=== PATIENT | female | born 1965 | race Caucasian/White ===

== ENCOUNTER 2019-11-18 08:53 | Outpatient (CLI) | payer OTHER, SELFPAY ==
--- NOTE | ~2019-11-18 | MM_ITS ---
EXAMINATION: MM screening [facility] BI w chandler HISTORY: Screening mammogram TECHNIQUE: Craniocaudal and mediolateral oblique 3-D tomosynthesis images were obtained and synthetic 2-D images were generated. CAD analysis was submitted and interpreted. COMPARISON: 11/30/2017, 11/24/2016, 11/12/2015 bilateral digital screening mammogram examinations BREAST PARENCHYMAL COMPOSITION: The breasts are heterogeneously dense, which may obscure small masses . FINDINGS: There is no evidence of suspicious mass, calcification, or architectural distortion to sugg est malignancy in either breast. There has been no suspicious interval change. IMPRESSION: 1. No mammographic evidence of malignancy. 2. Recommend routine screening mammography in one year. BI-RADS Category 1: Negative Reviewed, dictated and finalized at location A.
--- NOTE | ~2019-11-18 | DEXA_ITS ---
BMD(1) Young-Adult(2) Age-Matched(3) Region (g/cm2) T-score Z-score WHO Classification L1 1.172 0.3 1.7 Normal L2 1.146 -0.5 0.9 Normal L3 1.228 0.1 1.6 Normal L4 1.104 -0.9 0.6 Normal L1-L4 1.159 -0.3 1.2 Normal Trend: L1-L4 Change vs Change vs Measured Age BMD(1) Baseline Previous Date (years) (g/cm2) (%) (%) 11/18/2019 [age] 1.159 baseline - 1 - Statistically 68% of repeat scans fall within 1SD (+- 0.010 g/cm2 for AP Spine L1-L4) 2 - [place] (Combined NHANES (ages 20-30) / Smart Education (ages 20-40)) AP Spine Reference Population (v112) 3 - Matched for Age, Weight (females 25-100 kg), Ethnic 11 - World Health Organization - Definition of Osteoporosis and Osteopenia for Women: Normal = T-score at or above -1.0 SD; Osteopenia = T-score between -1.0 and -2.5 SD; Osteoporosis = T-score at or below -2.5 SD; (WHO definitions only apply when a young healthy Women reference database is used to determine T-scores.) Printed: 11/18/2019 10:42:20 AM (13.60)76:3.00:50.00:12.0 0.00:8.58 0.60x1.05 18.6:%Fat=33.0% 0.00:0.00 0.00:0.00 Filename: [id number] Scan Mode: Standard;OneScan 37.0 [employer] [id number] BMD(1) Young-Adult(2) Age-Matched(3) Region (g/cm2) T-score Z-score WHO Classification Neck Left 0.787 -1.8 -0.4 Osteopenia Right 0.754 -2.0 -0.6 Osteopenia Mean 0.770 -1.9 -0.5 Osteopenia Difference 0.032 0.2 0.2 - Total Left 0.850 -1.3 -0.1 Osteopenia Hip [place] Length Comparison (mm) (Right = 90.4 mm) (Mean = 100.5 mm) (Left = 92.8 mm) Trend: Total Mean Change vs Change vs Measured Age BMD(1) Baseline Previous Date (years) (g/cm2) (%) (%) 1 - Statistically 68% of repeat scans fall within 1SD (+- 0.010 g/cm2 for DualFemur Total) 2 - [place] (Combined NHANES (ages 20-30) / Smart Education (ages 20-40)) Femur Reference Population (v112) 3 - Matched for Age, Weight (females 25-100 kg), Ethnic 11 - World Health Organization - Definition of Osteoporosis and Osteopenia for Women: Normal = T-score at or above -1.0 SD; Osteopenia = T-score between -1.0 and -2.5 SD; Osteoporosis = T-score at or below -2.5 SD; (WHO definitions only apply when a young healthy Women reference database is used to determine T-scores.) Printed: 11/18/2019 10:42:20 AM (13.60); Filename: [id number]; Right Femur; 15.2:%Fat=21.6%; Neck Angle (deg)= 60; Scan Mode: Thin 9.0 uGy; Left Femur; 14.8:%Fat=23.4%; Neck Angle (deg)= 72; Verify there is sufficient tissue above and below femoral neck.; Scan Mode: Thin 9.0 uGy Jild[employer] [id number] Dear Levon Guadalupe, Your patient Teri Andujar completed a BMD test on 11/18/2019 using the Jildy DXA System (analysis version: 13.60) manufactured by [employer]. The following summarizes the results of our evaluation. PATIENT BIOGRAPHICAL: Name: Teri Andujar Date: 1965 Height: 60.0 in. Gender: Female Exam Date: 11/18/2019 Weight: 104.0 lbs. Indications: Caffeinated drinks, , Hysterectomy Fractures: Treatments: Multivitamin, Seizure Meds, Vitamin D ASSESSMENT: The BMD measured at Femur Neck Right is 0.754 g/cm2 with a T-score of -2.0. This patient is considered
== END 2019-11-18 08:54 | disposition home or self-care (01) ==
LOC: CHSIMG 08:54
PROVIDERS: PCP Internal Medicine; Visit Provider Internal Medicine
DX: Z12.31 Encounter for screening mammogram for malignant neoplasm of breast (principal); M81.0 Age-related osteoporosis without current pathological fracture
CPT/HCPCS: 77063; 77067; 77080

== ENCOUNTER 2020-07-10 09:42 | Outpatient (CLI) | payer OTHER, SELFPAY ==
--- NOTE | ~2020-07-10 | XR_ITS ---
EXAMINATION: XR chest 2V DATE: 07/10/2020 10:22 INDICATION: Preoperative evaluation for carpal tunnel surgery. Former smoker with seasonal asthma. Os teoporosis. TECHNIQUE: PA and lateral views of the chest were obtained. COMPARISON: Chest radiograph dated 06/01/17 FINDINGS: The lungs remain clear with no focal airspace opacities, pulmonary edema, pleural effusion or pneumot horax. The cardiomediastinal silhouette is normal. Visualized bones and soft tissues are unremarkable . IMPRESSION: 1. Normal chest radiograph. Reviewed, dictated and finalized at location A. IMPRESSION: 1. Normal chest radiograph.
[2020-07-10 09:58] LABS: Add Urine Microscopic? NO; Appearance Urine Clear (Clear); Basophils Absolute Auto 0.06 K/mm3 (0.00-0.10); Basophils Percent Auto 0.8 % (0.0-1.0); Bilirubin Urine Negative (Negative); Blood Urine Negative (Negative); Color Urine Yellow (Yellow); Eosinophils Absolute Auto 0.17 K/mm3 (0.02-0.50); Eosinophils Percent Auto 2.4 % (1.0-6.0); Glucose Urine UA Negative (Negative); Hemoglobin 15.1 g/dL (12.0-15.0); Immature Granulocyte Absolute 0.02 K/mm3 (0.00-0.00); Immature Granulocyte Percent A 0.3 % (0.0-0.0); Ketones Urine Negative (Negative); Leukocyte Esterase Ur Negative (Negative); Lymphocytes Absolute Auto 2.02 K/mm3 (1.10-4.50); Lymphocytes Percent Auto 28.5 % (18.0-42.0); Mean Corpuscular HGB Conc 33.6 g/dL (32.0-36.0); Mean Corpuscular Hemoglobin 30.1 pg (27.0-31.0); Mean Corpuscular Volume 89.6 fL (78.0-102.0); Mean Platelet Volume 9.1 fl (9.2-11.8); Monocytes Absolute Auto 0.47 K/mm3 (0.10-0.90); Monocytes Percent Auto 6.6 % (2.0-11.0); Neutrophils Absolute Auto 4.4 K/mm3 (1.7-7.2); Neutrophils Percent Auto 61.4 % (50.0-70.0); Nitrate Urine Negative (Negative); Platelet Count Result 340 K/mm3 (150-420); Protein Urine Negative (Negative); Red Blood Count 5.02 M/mm3 (4.20-5.40); Red Cell Distribution Width 11.9 % (11.6-14.4); Specific Grav Ur 1.015 (1.010-1.020); Urobilinogen Urine 0.2 mg/dL (0.2-1.0); White Blood Count 7.1 K/mm3 (4.8-10.8); pH Urine 5.5 (5.0-8.0)
[2020-07-10 10:41] LABS: Alanine Aminotransferase 47 U/L (14-59); Albumin Level 3.9 g/dL (3.4-5.0); Alkaline Phosphatase 79 U/L (46-116); Anion Gap 10 mmol/L (8-16); Aspartate Amino Transferase 22 U/L (15-37); Bilirubin,Total 0.4 mg/dL (0.00-1.00); Blood Urea Nitrogen 16 mg/dL (7-18); Calcium 9.5 mg/dL (8.5-10.1); Carbon Dioxide 27 mmol/L (21-32); Chloride 106 mmol/L (98-108); Estimated Glomerular Filt Rate > 60; Glucose 76 mg/dL (70-99); Osmolality Calculated 296 mOsm/kg (285-295); Sodium 143 mmol/L (136-145); Total Protein 7.2 g/dL (6.4-8.2)
== END 2020-07-10 09:43 | disposition home or self-care (01) ==
PROVIDERS: PCP Internal Medicine; Visit Provider Internal Medicine
DX: R73.01 Impaired fasting glucose (principal); D47.3 Essential (hemorrhagic) thrombocythemia; R74.01 Elevation of levels of liver transaminase levels
CPT/HCPCS: 36415; 71046; 80053; 81003; 85025

== ENCOUNTER 2020-08-14 07:57 | Outpatient (RCR) | payer OTHER, SELFPAY ==
--- NOTE | 2020-08-14 09:39 | OTOPEVAL ---
Thank you for referring Teri Andujar to [facility].? The patient is scheduled to be seen for therapy? ____x/week for ___ weeks. Please review, sign, date and return this plan of care TIA. I agree with and certify that the following plan of care is medically necessary. Referring Physician Date Admitting Provider: Attending Provider: RAFITA STREETER Referring Provider: FranciscaOT Outpatient Evaluation Start: 08/14/20 07:32 Freq: Status: Active Protocol: [place] 08[place]14/20 08:03 [facility] [place]Rec[place] 08/14/20 09:37 [facility] [place] [id number] Therapy Assessment Status Assessment Status Assessment Status Evaluation Evaluation Information Problem Diagnosis decreased ROM and strength Onset 08/10/20 Cause carpal tunnel Subjective Information Patient reports that she had Query Text:As Reported By Patient/ surgery for carpal tunnel on * and got her stitches out on Monday. Patient reports that her L hand/incision has been sore. Patient works in housekeeping at [employer] and is supposed to go back in ~ 2 weeks. Patient reports that that her left hand continues to be numb and she is unable to grasp anything. Quick DASH score: 77 .3% Prior Level of Function Activity Level (Last 3 Months) Occupation software engineering supervisor Hand Dominance Right Activity of Daily Living Ability Independent Indoor/Home Mobility Independent Community Mobility Independent Stairs Ability Independent Functional Cognition (Planning, Shopping Independent , Taking Medications) Cooking Yes Cleaning Yes Laundry Yes Shopping Yes Driving Yes Pain Assessment Timing of Pain Assessment Timing of Pain Assessment Assessment Pain Scale Pain Scale Used Numeric (1 - 10) Self Report Pain Assessment Left Wrist(s) Reported Pain Level 5 Lowest Pain Intensity 3 Greatest Pain Intensity 8 Pain Score Pain Score 5: Self Report Interventions Used Interventions Used By Clinicians Exercise,Mobilization,Manual Therapy Techniques Upper Extremity Range of Motion General Upper Extremity Range of Motion Reason Not Measured WNL/Left,WNL/Right Wrist Range of Motion Left Wrist Flexion - Active
--- NOTE | 2020-09-11 08:08 | OTOPEVAL ---
Thank you for referring Teri Andujar to [facility].? The patient is scheduled to be seen for therapy? ____x/week for ___ weeks. Please review, sign, date and return this plan of care TIA. I agree with and certify that the following plan of care is medically necessary. Referring Physician Date Admitting Provider: Attending Provider: RAFITA STREETER Referring Provider: FranciscaOT Outpatient Evaluation Start: 08/14/20 07:32 Freq: Status: Active Protocol: Document 09/11/20 07:08 [facility] [place] [place] (Rec: 09/11/20 08:08 [facility] [place] [place] [id number]) Therapy Assessment Status Assessment Status Assessment Status Re-evaluation Evaluation Information Problem Subjective Information Patient reports that she Query Text:As Reported By Patient/ continues to perform all home Family programming and has started using a massager on her scar. Patient returned back to work this past week. 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 Patient notes that she is getting much better with ease of performing all ADLs. Numbness in her L thumb , index and middle finger remains although she states she has had short periods of improvement. Pain Assessment Timing of Pain Assessment Timing of Pain Assessment Re-assessment Pain Scale Pain Scale Used Numeric (1 - 10) Self Report Pain Assessment Left Wrist(s) Reported Pain Level 6 Pain Description Throbbing Pain Score Pain Score 6: Self Report Interventions Used Interventions Used By Clinicians Exercise,Heat,Manual Therapy Techniques Hand Data Integration Developer/Pinch Strength Assessment Hand Right Data Integration Developer Strength (lbs) 43 Lateral Pinch Strength (lbs) 7 Tip Pinch Strength (lbs) 5 Left Data Integration Developer Strength (lbs) 16 Lateral Pinch Strength (lbs) 4 Tip Pinch Strength (lbs) 2 Sensation Assessment Location Left 2 Point Discrimination Comments patient reports occasional throbbing and tingling as well as numbness in the fingertips of L thumb, index and middle fingers distal to PIP joints. Extremity Circumference Assessment C
== END 2020-10-02 18:00 | disposition home or self-care (01) ==
LOC: CHSOT 07:57
DX: G56.00 Carpal tunnel syndrome, unspecified upper limb (principal)
CPT/HCPCS: 97035; 97110; 97140; 97165

== ENCOUNTER 2020-11-24 10:43 | Outpatient (CLI) | payer OTHER, SELFPAY ==
--- NOTE | ~2020-11-24 | MM_ITS ---
EXAMINATION: MM screening [facility] BI w chandler HISTORY: Screening mammogram TECHNIQUE: Craniocaudal and mediolateral oblique 3-D tomosynthesis images were obtained and synthetic 2-D images were generated. CAD analysis was submitted and interpreted. COMPARISON: 11/18/2019, 11/30/2017, 11/24/2016 BREAST PARENCHYMAL COMPOSITION: The breasts are heterogeneously dense, which may obscure small masses . FINDINGS: There is no evidence of suspicious mass, calcification, or architectural distortion to sugg est malignancy in either breast. There has been no suspicious interval change. IMPRESSION: 1. No mammographic evidence of malignancy. 2. Recommend routine screening mammography in one year. BI-RADS Category 1: Negative Reviewed, dictated and finalized at location A.
== END 2020-11-24 10:44 | disposition home or self-care (01) ==
LOC: CHSLAB 10:44
PROVIDERS: PCP Internal Medicine; Visit Provider Internal Medicine
DX: Z12.31 Encounter for screening mammogram for malignant neoplasm of breast (principal)
CPT/HCPCS: 77063; 77067

== ENCOUNTER 2021-01-01 10:38 | Outpatient (CLI) | payer OTHER, SELFPAY ==
--- NOTE | ~2021-01-01 | XR_ITS ---
EXAMINATION: XR chest 2V DATE: 01/01/2021 11:25 INDICATION: Chest pain TECHNIQUE: PA and lateral views of the chest are obtained. COMPARISON: 07/10/2020 FINDINGS: The lungs are free of acute opacities. There is no pleural effusion or pneumothorax. The ca rdiomediastinal silhouette is normal. There is mild thoracic spondylosis. IMPRESSION: 1. No acute cardiopulmonary abnormality. Reviewed, dictated and finalized at location A.
== END 2021-01-01 10:39 | disposition home or self-care (01) ==
PROVIDERS: PCP Internal Medicine
DX: R07.89 Other chest pain (principal)
CPT/HCPCS: 71046

== ENCOUNTER 2021-01-11 08:23 | Outpatient (CLI) | payer OTHER, SELFPAY ==
--- NOTE | ~2021-01-11 | US_ITS ---
US breast RT limited DATE: 01/11/2021 08:45 INDICATION: Acute painful lump in right upper inner quadrant TECHNIQUE: Real-time imaging of right upper quadrant including at 2:00 10 cm from nipple at area of c omplaint of palpable abnormality COMPARISON: 11/24/2020 bilateral screening mammogram FINDINGS: No suspicious mass or shadowing, cyst or other significant finding is detected in the upper inner quadrant of the right breast. IMPRESSION: BI-RADS Category 1: Negative Recommendation: Routine mammographic screening Negative mammogram and ultrasound examinations do not necessarily preclude further evaluation of any clinically suspicious palpable finding. Reviewed, dictated and finalized at Location A. Reviewed, dictated and finalized at location A. FING BRANCH MANAGER IMPRESSION: BI-RADS Category 1: Negative Recommendation: Routine mammographic screening Negative mammogram and ultrasound examinations do not necessarily preclude furt her evaluation of any clinically suspicious palpable finding.
== END 2021-01-11 08:24 | disposition home or self-care (01) ==
LOC: CHSIMG 08:25
PROVIDERS: PCP Internal Medicine; Visit Provider Internal Medicine
DX: N63.10 Unspecified lump in the right breast, unspecified quadrant (principal); N64.4 Mastodynia
CPT/HCPCS: 76642

== ENCOUNTER 2021-09-14 14:29 | Outpatient (CLI) | payer OTHER, SELFPAY ==
--- NOTE | ~2021-09-14 | XR_ITS ---
EXAMINATION: XR chest 2V 09/14/2021 15:15 INDICATION: Cough, shortness of breath and asthma PROCEDURE: 2 view chest COMPARISON: Comparison to multiple prior studies sequentially, with oldest reviewed study dated 05/03. FINDINGS: The lungs are clear. The cardiomediastinal silhouette is within normal limits. There are no pleural effusions. There is no pneumothorax suspected. IMPRESSION: 1: NO ACUTE CARDIOPULMONARY DISEASE. Reviewed, dictated and finalized at location A.
[2021-09-14 15:29] LABS: Basophils Absolute Auto 0.08 K/mm3 (0.00-0.10); Basophils Percent Auto 0.8 % (0.0-1.0); Eosinophils Absolute Auto 0.12 K/mm3 (0.02-0.50); Eosinophils Percent Auto 1.2 % (1.0-6.0); Hematocrit 43.2 % (35.0-49.0); Hemoglobin 14.8 g/dL (12.0-15.0); Immature Granulocyte Absolute 0.03 K/mm3 (0.00-0.00); Immature Granulocyte Percent A 0.3 % (0.0-0.0); Lymphocytes Absolute Auto 3.03 K/mm3 (1.10-4.50); Lymphocytes Percent Auto 29.9 % (18.0-42.0); Mean Corpuscular HGB Conc 34.3 g/dL (32.0-36.0); Mean Corpuscular Hemoglobin 30.2 pg (27.0-31.0); Mean Corpuscular Volume 88.2 fL (78.0-102.0); Mean Platelet Volume 8.9 fl (9.2-11.8); Monocytes Absolute Auto 0.58 K/mm3 (0.10-0.90); Monocytes Percent Auto 5.7 % (2.0-11.0); Neutrophils Absolute Auto 6.3 K/mm3 (1.7-7.2); Neutrophils Percent Auto 62.1 % (50.0-70.0); Platelet Count Result 379 K/mm3 (150-420); Red Cell Distribution Width 11.8 % (11.6-14.4); White Blood Count 10.2 K/mm3 (4.8-10.8)
[2021-09-14 16:08] LABS: Influenza A QL RT-PCR Negative (Negative); Influenza B QL RT-PCR Negative (Negative); SARS-CoV-2 RNA PCR Negative (Negative)
== END 2021-09-14 14:30 | disposition home or self-care (01) ==
PROVIDERS: PCP Internal Medicine; Visit Provider Internal Medicine
DX: R05.9 Cough, unspecified (principal); Z20.822 Contact with and (suspected) exposure to COVID-19
CPT/HCPCS: 36415; 71046; 85025; 87502; C9803; U0003; U0005

== ENCOUNTER 2021-11-29 13:52 | Outpatient (CLI) | payer OTHER, SELFPAY ==
--- NOTE | ~2021-11-29 | MM_ITS ---
EXAMINATION: MM screening [facility] BI w chandler HISTORY: Screening mammogram TECHNIQUE: Craniocaudal and mediolateral oblique 3-D tomosynthesis images were obtained and synthetic 2-D images were generated. CAD analysis was submitted and interpreted. COMPARISON: 01/11/2021 Limited right breast ultrasound examination /, 11/18/2019, 11/30/2017 bilateral screening mammogram examinations BREAST PARENCHYMAL COMPOSITION: The breasts are heterogeneously dense, which may obscure small masses . FINDINGS: There is no evidence of suspicious mass, calcification, or architectural distortion to sugg est malignancy in either breast. There has been no suspicious interval change. IMPRESSION: 1. No mammographic evidence of malignancy. 2. Recommend routine screening mammography in one year. BI-RADS Category 1: Negative Reviewed, dictated and finalized at location A.
== END 2021-11-29 13:53 | disposition home or self-care (01) ==
LOC: CHSIMG 13:53
PROVIDERS: PCP Internal Medicine; Visit Provider Internal Medicine
DX: Z12.31 Encounter for screening mammogram for malignant neoplasm of breast (principal)
CPT/HCPCS: 77063; 77067

== ENCOUNTER 2022-07-27 15:59 | Outpatient (CLI) | payer OTHER, SELFPAY ==
--- NOTE | ~2022-07-27 | XR_ITS ---
EXAMINATION: XR chest 2V Exam Date/Time: 07/27/2022 16:38 CDT HISTORY: NASAL CONGESTION WITH COUGH SINCE YESTERDAY. URI. Comparison: 09/14/2021. RESULT: Lines, tubes, and devices: None. Lungs and pleura: Clear. Cardiomediastinal silhouette: Stable. Other: No acute osseous or upper abdominal finding. IMPRESSION: No acute cardiopulmonary process. Reviewed, dictated and finalized at location K.
[2022-07-27 16:18] LABS: Basophils Absolute Auto 0.05 K/mm3 (0.00-0.10); Basophils Percent Auto 0.9 % (0.0-1.0); Eosinophils Absolute Auto 0.01 K/mm3 (0.02-0.50); Eosinophils Percent Auto 0.2 % (1.0-6.0); Hematocrit 46.2 % (35.0-49.0); Hemoglobin 15.6 g/dL (12.0-15.0); Immature Granulocyte Absolute 0.01 K/mm3 (0.00-0.00); Immature Granulocyte Percent A 0.2 % (0.0-0.0); Lymphocytes Absolute Auto 0.69 K/mm3 (1.10-4.50); Lymphocytes Percent Auto 12.6 % (18.0-42.0); Mean Corpuscular HGB Conc 33.8 g/dL (32.0-36.0); Mean Corpuscular Hemoglobin 30.1 pg (27.0-31.0); Mean Platelet Volume 8.5 fl (9.2-11.8); Monocytes Absolute Auto 0.58 K/mm3 (0.10-0.90); Monocytes Percent Auto 10.6 % (2.0-11.0); Neutrophils Absolute Auto 4.1 K/mm3 (1.7-7.2); Neutrophils Percent Auto 75.5 % (50.0-70.0); Platelet Count Result 262 K/mm3 (150-420); Red Blood Count 5.19 M/mm3 (4.20-5.40); Red Cell Distribution Width 11.6 % (11.6-14.4); White Blood Count 5.5 K/mm3 (4.8-10.8)
[2022-07-27 16:31] LABS: Alanine Aminotransferase 50 U/L (14-59); Albumin Level 3.8 g/dL (3.4-5.0); Alkaline Phosphatase 73 U/L (46-116); Anion Gap 6 mmol/L (8-16); Aspartate Amino Transferase 23 U/L (15-37); Bilirubin,Total 0.2 mg/dL (0.00-1.00); Blood Urea Nitrogen 9 mg/dL (7-18); Calcium 9.1 mg/dL (8.5-10.1); Carbon Dioxide 33 mmol/L (21-32); Chloride 96 mmol/L (98-108); Estimated Glomerular Filt Rate > 60; Glucose 82 mg/dL (70-99); Osmolality Calculated 277 mOsm/kg (285-295); Potassium 3.9 mmol/L (3.5-5.1); Sodium 135 mmol/L (136-145); Total Protein 7.6 g/dL (6.4-8.2)
[2022-07-27 16:50] LABS: Strep Group A RT-PCR NOT DETECTED (Negative)
[2022-07-27 16:53] LABS: Influenza A QL RT-PCR Negative (Negative); Influenza B QL RT-PCR Negative (Negative); SARS-CoV-2 RNA PCR Positive (Negative)
== END 2022-07-27 16:00 | disposition home or self-care (01) ==
LOC: CHSLAB 16:03
PROVIDERS: PCP Internal Medicine; Visit Provider Internal Medicine
DX: U07.1 COVID-19 (principal); J06.9 Acute upper respiratory infection, unspecified; J02.9 Acute pharyngitis, unspecified; R05.9 Cough, unspecified
CPT/HCPCS: 36415; 71046; 80053; 85025; 87636; 87651

== ENCOUNTER 2022-12-02 13:52 | Outpatient (CLI) | payer OTHER, SELFPAY ==
--- NOTE | ~2022-12-02 | MM_ITS ---
EXAMINATION: MM screening caryn BI w chandler HISTORY: Screening mammogram TECHNIQUE: Craniocaudal and mediolateral oblique 3-D tomosynthesis images were obtained and synthetic 2-D images were generated. CAD analysis was submitted and interpreted. COMPARISON: 11/29/2021 bilateral screening mammogram 01/11/2021 Limited right breast ultrasound examination, reported negative 11/24/2020, 11/18/2019 bilateral screening mammogram examinations BREAST PARENCHYMAL COMPOSITION: The breasts are heterogeneously dense, which may obscure small masses . FINDINGS: There is no evidence of suspicious mass, calcification, or architectural distortion to sugg est malignancy in either breast. There has been no suspicious interval change. IMPRESSION: 1. No mammographic evidence of malignancy. 2. Recommend routine screening mammography in one year. BI-RADS Category 1: Negative Reviewed, dictated and finalized at location A.
== END 2022-12-02 13:53 | disposition home or self-care (01) ==
LOC: CHSIMG 13:55
PROVIDERS: PCP Internal Medicine; Visit Provider Internal Medicine
DX: Z12.31 Encounter for screening mammogram for malignant neoplasm of breast (principal)
CPT/HCPCS: 77063; 77067

== ENCOUNTER 2022-12-16 10:48 | Outpatient (CLI) | payer OTHER, SELFPAY ==
[2022-12-16 11:10] LABS: Basophils Absolute Auto 0.08 K/mm3 (0.00-0.10); Basophils Percent Auto 1.2 % (0.0-1.0); Eosinophils Absolute Auto 0.18 K/mm3 (0.02-0.50); Eosinophils Percent Auto 2.8 % (1.0-6.0); Hematocrit 48.6 % (35.0-49.0); Hemoglobin 16.4 g/dL (12.0-15.0); Immature Granulocyte Absolute 0.02 K/mm3 (0.00-0.00); Immature Granulocyte Percent A 0.3 % (0.0-0.0); Lymphocytes Absolute Auto 1.98 K/mm3 (1.10-4.50); Lymphocytes Percent Auto 30.8 % (18.0-42.0); Mean Corpuscular HGB Conc 33.7 g/dL (32.0-36.0); Mean Corpuscular Hemoglobin 29.8 pg (27.0-31.0); Mean Corpuscular Volume 88.4 fL (78.0-102.0); Mean Platelet Volume 8.8 fl (9.2-11.8); Monocytes Absolute Auto 0.41 K/mm3 (0.10-0.90); Monocytes Percent Auto 6.4 % (2.0-11.0); Neutrophils Absolute Auto 3.8 K/mm3 (1.7-7.2); Neutrophils Percent Auto 58.5 % (50.0-70.0); Platelet Count Result 345 K/mm3 (150-420); Red Cell Distribution Width 11.4 % (11.6-14.4); White Blood Count 6.4 K/mm3 (4.8-10.8)
[2022-12-16 11:30] LABS: Anion Gap 9 mmol/L (8-16); Blood Urea Nitrogen 9 mg/dL (7-18); Calcium 9.4 mg/dL (8.5-10.1); Carbon Dioxide 27 mmol/L (21-32); Chloride 104 mmol/L (98-108); Estimated Glomerular Filt Rate > 60; Glucose 86 mg/dL (70-99); Osmolality Calculated 287 mOsm/kg (285-295); Potassium 3.8 mmol/L (3.5-5.1); Sodium 140 mmol/L (136-145); Uric Acid 4.4 mg/dL (2.6-6.0)
[2022-12-16 11:31] LABS: CRP < 0.5 mg/dL (0.0-0.9)
[2022-12-16 12:14] LABS: Erythrocyte Sedimentation Rate 5 mm/hr (0-20)
== END 2022-12-16 10:49 | disposition home or self-care (01) ==
LOC: CHSLAB 10:49
PROVIDERS: PCP Internal Medicine; Visit Provider Internal Medicine
DX: M79.671 Pain in right foot (principal)
CPT/HCPCS: 36415; 73630; 80048; 84550; 85025; 85652; 86140

== ENCOUNTER 2022-12-22 09:10 | Outpatient (CLI) | payer OTHER, SELFPAY ==
--- NOTE | ~2022-12-22 | XR_ITS ---
XR ribs LT 2V w CXR 2V DATE: 12/22/2022 09:35 INDICATION: Left pleuritic chest pain. TECHNIQUE: PA and lateral views. 3 views of the left ribs. COMPARISON: 07/23/2022 PA and lateral chest FINDINGS: Normal heart size. No hilar or mediastinal enlargement. No pulmonary infiltrate or consolid ation, pleural effusion or pulmonary vascular congestion or pneumothorax. No left rib fracture or bone destruction is detected. IMPRESSION: No active cardiopulmonary disease Negative left ribs Reviewed, dictated and finalized at location L.
== END 2022-12-22 09:11 | disposition home or self-care (01) ==
LOC: CHSIMG 09:12
PROVIDERS: PCP Internal Medicine; Visit Provider Internal Medicine
DX: J45.909 Unspecified asthma, uncomplicated (principal); R07.81 Pleurodynia
CPT/HCPCS: 71046; 71100

== ENCOUNTER 2023-02-02 06:54 | Outpatient (CLI) | payer OTHER, SELFPAY ==
--- NOTE | ~2023-02-02 | MR_ITS ---
EXAMINATION: MR venography brain DATE: 02/02/2023 08:17 INDICATION: Left-sided pulsatile tinnitus. Seizure. TECHNIQUE: Magnetic resonance venography (MRV) of the brain was performed without intravenous contras t. COMPARISON: Brain MRI 02/02/2023 FINDINGS: The internal cerebral veins, vein of Nii, straight sinus, superior sagittal sinus, transv erse sinuses, and oblique sinuses are normal. IMPRESSION: 1. Normal MRV. Reviewed, dictated and finalized at location A. MAKER IMPRESSION: 1. Normal MRV.
--- NOTE | ~2023-02-02 | MR_ITS ---
EXAMINATION: MRA brain wo con DATE: 02/02/2023 08:17 INDICATION: Left-sided pulsatile tinnitus. Seizure. TECHNIQUE: Magnetic resonance angiography (MRA) of the brain was performed without intravenous contra st with T1-weighted SPGR by the 3D [id number] technique. Maximum intensity projection 3D-reconstr uctions were obtained. COMPARISON: None. FINDINGS: The vertebral arteries are codominant. There is no significant stenosis of basilar artery or the post erior cerebral arteries. Right posterior communicating artery is normal. A left posterior communicati ng artery is not identified. There is no significant stenosis of the intracranial internal carotid ar teries or anterior or middle cerebral arteries. Anterior communicating artery is normal. There is no aneurysm. IMPRESSION: 1. Normal MRA. Reviewed, dictated and finalized at location A. EQUIPMENT INSPECTOR IMPRESSION: 1. Normal MRA.
--- NOTE | ~2023-02-02 | MR_ITS ---
EXAMINATION: MR brain/brain stem wo con DATE: 02/02/2023 08:17 INDICATION: Seizure. Left-sided pulsatile tinnitus. TECHNIQUE: Magnetic resonance imaging (MRI) of the brain and brainstem was performed without intraven ous contrast. COMPARISON: Brain MRI 07/21/2007 FINDINGS: There is no intracranial hemorrhage, acute infarction, or abnormal intracranial mass lesion . The hippocampi are normal and symmetric. The ventricles are normal in size. There is mucosal thicke shawn in the paranasal sinuses. The orbits are normal. There is a trace left mastoid effusion. IMPRESSION: 1. Normal brain. Reviewed, dictated and finalized at location A. ICE SECRETARY IMPRESSION: 1. Normal brain.
== END 2023-02-02 06:55 | disposition home or self-care (01) ==
LOC: CHSIMG 06:55
PROVIDERS: PCP Internal Medicine
DX: G40.909 Epilepsy, unspecified, not intractable, without status epilepticus (principal); H93.A2 Pulsatile tinnitus, left ear
CPT/HCPCS: 70544; 70551

== ENCOUNTER 2023-12-05 11:01 | Outpatient (CLI) | payer OTHER, SELFPAY ==
--- NOTE | ~2023-12-05 | XR_ITS ---
XR chest 2V Ordering provider: Levon Guadalupe MD History: 58 years Female with . ACUTE ASTHMA, COUGH . Comparison: December 22, 2022 FINDINGS: MEDIASTINUM: The cardiac silhouette is not enlarged. LUNGS: No infiltrates, effusions or pneumothorax. OTHER: No free air under the diaphragm. IMPRESSION: No acute cardiopulmonary pathology Reviewed, dictated and finalized at location A.
== END 2023-12-05 11:02 | disposition home or self-care (01) ==
PROVIDERS: PCP Internal Medicine; Visit Provider Internal Medicine
DX: J45.998 Other asthma (principal); R05.9 Cough, unspecified
CPT/HCPCS: 71046

== ENCOUNTER 2024-02-29 12:18 | Outpatient (CLI) | payer OTHER, SELFPAY ==
--- NOTE | ~2024-02-29 | DEXA_ITS ---
Bone Density Report Name: COLLETTE GARCIAS Age: 58 Sex: Female Ethnicity: White Date of : 1965 Indication: osteopenia; hyperparathyroidism; height loss; seizure disorder; asthma or emphysema; hysterectomy; Referring Provider: Levon Guadalupe Study: Bone densitometry was performed. Exam Date: February 29, 2024 Accession number: [id number] Bone Density: Region BMD T-score Z-score Classification AP Spine(L1-L4) 0.923 -1.1 0.3 Osteopenia Femoral Neck (Left) 0.570 -2.5 -1.2 Osteoporosis Total Hip (Left) 0.799 -1.2 -0.2 Osteopenia Femoral Neck (Right) 0.576 -2.5 -1.2 Osteoporosis Total Hip (Right) 0.781 -1.3 -0.4 Osteopenia Femoral Neck Mean 0.573 -2.5 -1.2 Osteoporosis Total Hip Mean 0.790 -1.2 -0.3 Osteopenia World Health Organization criteria for BMD impression classify patients as: Normal (T-score at or above -1.0), Osteopenia (T-score between -1.0 and -2.5), or Osteoporosis (T-score at or below -2.5). 10-year Fracture Risk: FRAX not reported because: Some T-score for Spine Total or Hip Total or Femoral Neck at or below -2.5 Previous Exams: Region Exam Age BMD T-score BMD Change BMD Change Date g/cm2 vs Baseline vs Previous AP Spine (L1-L4) 02/29/2024 58 0.923 -1.1 -0.103 (-10.0% -0.103 (-10.0% 11/18/2019 54 1.026 -0.2 Total Hip(Left) 02/29/2024 58 0.799 -1.2 0.011 (1.4%)# 0.011 (1.4%)# 11/18/2019 54 0.788 -1.3 Total Hip(Right) 02/29/2024 58 0.781 -1.3 N/A N/A 11/18/2019 54 0.000 0.0 N/A N/A *Denotes significance at 95% confidence level, LSC for AP Spine = 0.022 g/cm2, LSC for Total Hip = 0.027 g/cm2 # Denotes dissimilar scan types or analysis methods Clinical Information Provided by Patient: Has used the following medications: Vitamin D, Calcium Has the following medical conditions: Any Seizure Disorders, Asthma or Emphysema, Hyperparathyroidism, Hysterectomy Patient maximum height was 61. Menopause Age: 48 Drinks caffeinated beverages Onset of menses at age 9 Number of children 0 Impression: The patient has osteoporosis, based on the Left Femoral Neck T-score. No significant bone loss was observed. Discussion: INCREASED RISK OF FRACTURE. BONE DENSITY IS UNDESIRABLY LOW AT ONE OR MORE SKELETAL SITES, CONSISTENT WITH POSTMENOPAUSAL OSTEOPOROSIS. This patient's lowest T-score meets the World Health Organization's (WHO) criteria for osteoporosis at one or more sites (T-score -2.5 or below). In untreated patients, the risk of osteoporotic fracture increases approximately two-fold for each 1.0 SD decrease in T-score. Low bone density is not the only risk factor for fracture; also consider factors such as patient's age, frailty or poor health, risk of falling, risk of injury, previous osteoporotic fracture, family history of osteoporosis, cigarette smoking, low body weight, etc. Not everyone with low bone mineral density has osteoporosis; osteomalacia and other metabolic bone disorders should also be considered. Patients who have osteoporosis should be evaluated for specific diseases and conditions (secondary causes) that may cause or contribute to bone loss. The [place] Association of Clinical Endocrinologists (AACE) and National Osteoporosis Foundation (NOF) recommend pharmacologic intervention for all postmenopausal women whose T-score is in this range. The patient should follow a healthful lifestyle (good nutrition with adequate calcium and vitamin D, and appropriate weight-bearing exercise). Follow-Up: Consider a repeat BMD and Vertebral Fracture Assessment (VFA) exam in 2 years or sooner if medically necessary, to reassess this patient's status. Reported by: TUSHAR on 02/29/2024 12:48:00 PM. Reviewed, dictated and finalized at location A.
--- NOTE | ~2024-02-29 | MM_ITS ---
EXAMINATION: MM screening [facility] BI w chandler HISTORY: Screening TECHNIQUE: Craniocaudal and mediolateral oblique 3-D tomosynthesis images were obtained and synthetic 2-D images were generated. CAD analysis was submitted and interpreted. COMPARISON: 12/02/2022 and dating back to 11/30/2017 BREAST PARENCHYMAL COMPOSITION: There are scattered areas of fibroglandular density. FINDINGS: Bulky calcification within the upper outer quadrant of the left breast, stable (dating back to 2019) and benign in appearance. Stable parenchymal pattern without suspicious microcalcifications, architectural distortion, discrete masses or significant asymmetry. IMPRESSION: 1. No mammographic evidence of malignancy. 2. Recommend routine screening mammography in one year. BI-RADS Category 2: Benign finding(s). Reviewed, dictated and finalized at location A. ING MACHINE OPERATOR/TENDER
== END 2024-02-29 12:19 | disposition home or self-care (01) ==
LOC: CHSIMG 12:21
PROVIDERS: PCP Internal Medicine; Visit Provider Internal Medicine
DX: Z12.31 Encounter for screening mammogram for malignant neoplasm of breast (principal); M81.0 Age-related osteoporosis without current pathological fracture; M85.89 Other specified disorders of bone density and structure, multiple sites
CPT/HCPCS: 77063; 77067; 77080

== ENCOUNTER 2024-04-16 07:49 | Outpatient (CLI) | payer OTHER, SELFPAY ==
--- OUTSIDE RECORDS SUMMARY | 2024-04-16 08:13 | XMS_ITS | Clinical Summary ---
Author Organization [facility] Address [facility] [place] [address] Care Team Providers Care Motion Study Technician Name Role Phone Levon Guadalupe MD Primary Care Provider [phone] Allergies Active Allergy Reactions Criticality Noted Date Comments Ciprofloxacin Unknown 03/10/2016 Clarithromycin Unknown 03/10/2016 Naproxen Unknown 03/10/2016 Medications hydrochlorothia zide 25 MG tablet Take 1 tablet by mouth daily. Active levothyroxine (LEVOXYL) 50 MCG tablet Active lovastatin 40 MG tablet Take 1 tablet by mouth. Active potassium chloride CR 20 MEQ tablet Take 2 tablets by mouth daily. Active ranitidine 15 MG/ML syrup Take 1 mL by mouth 2 (two) times daily. Active multivitamins-m inerals, ABDEK, chewable tablet Chew 1 tablet by mouth daily. Active Cholecalciferol (VITAMIN D) 2000 units Tab Take by mouth daily. Active acetaminophen-c odeine 300-30 MG tablet 07/28/2020 Active atorvastatin 40 MG tablet 09/03/2020 Active sertraline 50 MG tablet 05/29/2020 Active TOPIRAMATE 50 MG TabIndications: Intractable partial epilepsy (CMS/HCC HHS/HCC) TAKE ONE TABLET BY MOUTH AT BEDTIME D/C'D RX 08-09-21 30 tablet 08/10/2021 Active topiramate (TOPAMAX) 100 MG tabletIndicatio ns:Intractable partial epilepsy (CMS/HCC HHS/HCC) Take 1 tablet (100 mg total) by mouth 2 (two) times daily. Take 1 tablet (100mg) by mouth in the morning and take 1 and a half tablets (150mg) at night daily. 75 tablet 11 10/18/2021 Active Active Problems Problem Noted Date Diagnosed Date Epilepsy, partial ([facility]) 05/20/2016 Overview (02/23/2018): Impression - 20May2016 Nick Irvin: No structural lesion noted on MRI. Carpal tunnel syndrome, bilateral upper limbs Hypercholesteremia 03/10/2016 Primary hypothyroidism 03/10/2016 GERD (gastroesophageal reflux disease) 7 Family History Medical History Relation Comments No Known Problems Brother Alzheimers Father Colon Cancer Father No Known Problems Maternal Aunt No Known Problems Maternal Grandfather No Known Problems Maternal Grandmother No Known Problems Maternal Uncle No Known Problems Mother No Known Problems Paternal Aunt No Known Problems Paternal Grandfather No Known Problems Paternal Grandmother No Known Problems Paternal Uncle No Known Problems Sister Relation Status Comments Brother Father Maternal Aunt Maternal Grandfather Maternal Grandmother Maternal Uncle Mother Paternal Aunt Paternal Grandfather Paternal Grandmother Paternal Uncle Sister Social History Tobacco Use Types Packs/Day Years Used Date Smoking Tobacco: Former Smokeless Tobacco: Never Tobacco Cessation:Counseling Given: No Comments:patient is no longer smoking Alcohol Use Standard Drinks/Week Comments No 0 (1 standard drink = 0.6 oz pur e alcohol) AUDIT-C Answer Date Recorded Frequency of Alcohol Consumption Never 02/23/2018 Average Number of Drinks Not on file 018 Frequency of Binge Drinking Not on file 02/04 PHQ-2 Answer Date Recorded PHQ-2 Score - If the patient scores above 3, please move on to questions 3-9 0 04/16/2021 Comments Unknown Sex and Gender Information Value Date Recorded Sex Assigned at Not on file Legal Sex Female 10:57 PM COLD WORKING SUPERVISOR Gender Identity Not on file Sexual Orientation Not on file Last Filed Vital Signs Vital Sign Reading Time Taken Comments Blood Pressure 118/70 04/16/2021 10:37 AM COLD WORKING SUPERVISOR Pulse 77 04/16/2021 10:37 AM COLD WORKING SUPERVISOR Temperature 36.2 C (97.1 F) 10/18/2019 10:58 AM CDT Respiratory Rate - - Oxygen Saturation 98% 04/16/2021 10:37 AM COLD WORKING SUPERVISOR Inhaled Oxygen Concentration - - Weight 51.8 kg (114 lb 3.2 oz) 04/16/2021 10:37 AM COLD WORKING SUPERVISOR Height 154.9 cm (5' 1 ) 04/16/2021 10:37 AM COLD WORKING SUPERVISOR Body Mass Index 21.58 04/16/2021 10:37 AM COLD WORKING SUPERVISOR Plan of Treatment Health Maintenance Due Date Last Done Comments Cervical Cancer Screening Pa p Smear (Age 30 to 64) Every 3 Years 1963 Colorectal Cancer Screening Colonoscopy (10 Years) 1963 Annual Physical 11/03/1966 Hepatitis C 11/03/1981 DTaP, Tdap and Td Vaccines ( 1 - Tdap) 11/03/1982 Cervical Cancer Screening Pa p with HPV Testing (Age 30 to 64) Every 5 Years 11/03/1993 Cervical Cancer Screening with HPV 11/03/1993 Mammogram Screening 2003 Zoster Vaccines (1 of 2) 11/03/2013 COVID-19 Vaccine ( - 2023-2 5 season) 2023 Influenza Adult (#1) 2023 RSV Immunization or 60+ Years (1 - 1-dose 75+ series) 11/03/2038 Pneumococcal Vaccine: Pediat rics (0 to 5 Years) and At-Risk Patients (6 to 64 Years) Aged Out 11/12/2015 No longer eligi ble based on patient's age to complete this topic Meningococcal B Vaccine Aged Out No l onger eligible based on patient's age to complete this topic Meningococcal Vaccine Aged Out No remy lizandro eligible based on patient's age to complete this topic RSV Immunizations Under 20 Months Aged Out No longer eligible based on patient's age to complete this topic Procedures Procedure Name Priority Date/Time Associated Diagnosis Comments COLONOSCOPY Routine COLD WORKING SUPERVISOR from Last 3 Months or Most Recently Relevant to Health Maintenance Results * Colonoscopy ( COLD WORKING SUPERVISOR) Narrative [facility] TO EPIC CONVERSION - COLD WORKING SUPERVISOR Documented hx of procedure Procedure Note Tremaine Chacko MD - 01/07/2018 Documented hx of procedure us Generic Conversion Md CHACKO GI PROCEDURE ORDERABLES Final Result [facility] TO EPIC CONVERSION from Last 3 Months or Most Recently Relevant to Health Maintenance Insurance [employer] Care Teams Motion Study Technician Relationship Specialty Start Date End Date Levon Guadalupe MD [address] [place] [id number] PCP - General INTERNAL MEDICINE 12/20/17
[2024-04-16 09:27] LABS: Alanine Aminotransferase 44 U/L (14-59); Albumin Level 3.8 g/dL (3.4-5.0); Alkaline Phosphatase 82 U/L (46-116); Anion Gap 12 mmol/L (4-12); Aspartate Amino Transferase 21 U/L (15-37); Bilirubin,Total 0.4 mg/dL (0.00-1.00); Blood Urea Nitrogen 14 mg/dL (7-18); Calcium 8.7 mg/dL (8.5-10.1); Carbon Dioxide 29 mmol/L (21-32); Chloride 102 mmol/L (98-108); Cholesterol 191 mg/dL (0-200); Creatine Kinase 74 U/L (26-192); Estimated Glomerular Filt Rate > 60; Free T3 2.64 pg/mL (2.18-3.98); Free T4 Free Thyroxine 1.13 ng/dL (0.76-1.46); Glucose 101 mg/dL (70-99); HDL Direct 52 mg/dL (40-60); LDL Cholesterol Calculated 117 mg/dL (<130); Osmolality Calculated 296 mOsm/kg (285-295); Potassium 3.8 mmol/L (3.5-5.1); Sodium 143 mmol/L (136-145); Thyroid Stimulating Hormone 2.75 uIU/mL (0.36-3.74); Total Protein 7.2 g/dL (6.4-8.2); Triglycerides 109 mg/dL (0-150)
== END 2024-04-16 07:50 | disposition home or self-care (01) ==
LOC: CHSLAB 07:51
PROVIDERS: PCP Internal Medicine; Visit Provider Internal Medicine
DX: E03.4 Atrophy of thyroid (acquired) (principal); E78.2 Mixed hyperlipidemia; R73.01 Impaired fasting glucose
CPT/HCPCS: 36415; 80053; 80061; 82550; 84439; 84443; 84481

== ENCOUNTER 2024-07-11 08:00 | Outpatient (CLI) | payer OTHER, SELFPAY ==
--- OUTSIDE RECORDS SUMMARY | 2024-07-11 08:06 | XMS_ITS | Clinical Summary ---
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/20/2016 Overview (02/23/2018): Impression - 20May2016 Nick [...] on file Legal Sex Female 10:57 PM TECHNICAL COORDINATOR Gender Identity Not on file Sexual Orientation Not on file Last Filed Vital Signs Vital Sign Reading Time Taken Comments Blood Pressure 118/70 04/16/2021 10:37 AM TECHNICAL COORDINATOR Pulse 77 04/16/2021 10:37 AM TECHNICAL COORDINATOR Temperature 36.2 C (97.1 F) 10/18/2019 10:58 AM CDT Respiratory Rate - - Oxygen Saturation 98% 04/16/2021 10:37 AM TECHNICAL COORDINATOR Inhaled Oxygen Concentration - - Weight 51.8 kg (114 lb 3.2 oz) 04/16/2021 10:37 AM TECHNICAL COORDINATOR Height 154.9 cm (5' 1 ) 04/16/2021 10:37 AM TECHNICAL COORDINATOR Body Mass Index 21.58 04/16/2021 10:37 AM TECHNICAL COORDINATOR Plan of Treatment Health Maintenance Due Date [...] 2003 Zoster Vaccines (1 of 2) 11/03/2013 Pneumococcal Vaccine: 50+ Ye ars (2 of 2 - PPSV23) 11/11/2016 11/12/2015 COVID-19 Vaccine ( - 2023-2 5 season) 2023 RSV Immunization or 60+ Years (1 - 1-dose 75+ series) 11/03/2038 Meningococcal B Vaccine Aged Out No l onger eligible based on patient's age to complete this topic Meningococcal Vaccine Aged Out No remy lizandro eligible based on patient's age to complete this topic RSV Immunizations Under 20 Months Aged Out No longer eligible based on patient's age to complete this topic Procedures Procedure Name Priority Date/Time Associated Diagnosis Comments COLONOSCOPY Routine TECHNICAL COORDINATOR from Last 3 Months or Most Recently Relevant to Health Maintenance Results * Colonoscopy ( TECHNICAL COORDINATOR) Narrative [facility] TO EPIC CONVERSION - TECHNICAL COORDINATOR Documented hx of procedure Procedure Note Md Generic ConversionMD - 01/07/2018 Documented hx of procedure us Generic Conversion Md CHACKO GI PROCEDURE ORDERABLES Final Result [facility] TO EPIC CONVERSION from Last 3 Months or Most Recently Relevant to Health Maintenance Insurance [employer] Care Teams Data Integrity Consultant Relationship Specialty Start Date End Date Levon Guadalupe MD [address] [place] [address] PCP - General INTERNAL MEDICINE 12/20/17
[2024-07-11 08:26] LABS: Basophils Percent Auto 1.5 % (0.0-1.0); Eosinophils Absolute Auto 0.38 K/mm3 (0.02-0.50); Eosinophils Percent Auto 5.5 % (1.0-6.0); Hemoglobin 15.1 g/dL (12.0-15.0); Immature Granulocyte Absolute 0.01 K/mm3 (0.00-0.00); Immature Granulocyte Percent A 0.1 % (0.0-0.0); Lymphocytes Absolute Auto 2.82 K/mm3 (1.10-4.50); Lymphocytes Percent Auto 40.9 % (18.0-42.0); Mean Corpuscular HGB Conc 33.6 g/dL (32-36); Mean Corpuscular Hemoglobin 29.1 pg (27.0-31.0); Mean Corpuscular Volume 86.7 fL (78.0-102.0); Mean Platelet Volume 8.9 fl (9.2-11.8); Monocytes Absolute Auto 0.49 K/mm3 (0.10-0.90); Monocytes Percent Auto 7.1 % (2.0-11.0); Neutrophils Absolute Auto 3.09 K/mm3 (1.70-7.20); Neutrophils Percent Auto 44.9 % (50.0-70.0); Platelet Count Result 394 K/mm3 (150-420); Red Blood Count 5.19 M/mm3 (4.20-5.40); Red Cell Distribution Width 11.9 % (11.6-14.4); White Blood Count 6.9 K/mm3 (4.8-10.8)
[2024-07-11 08:30] LABS: Add Urine Microscopic? NO; Appearance Urine Clear (Clear); Bilirubin Urine Negative (Negative); Blood Urine Negative (Negative); Color Urine Yellow (Yellow); Glucose Urine UA Negative (Negative); Ketones Urine Negative (Negative); Leukocyte Esterase Ur Negative LEU/UL (Negative); Nitrate Urine Negative (Negative); Protein Urine Negative (Negative); Urobilinogen Urine 0.2 mg/dL (0.2-1.0); pH Urine 7.5 (5.0-8.0)
[2024-07-11 08:58] LABS: Hemoglobin A1C 5.7 % (<5.7)
[2024-07-11 09:14] LABS: Free T3 2.72 pg/mL (2.18-3.98)
[2024-07-11 15:37] LABS: Alanine Aminotransferase 36 U/L (6-35); Albumin Level 4.4 g/dL (3.5-5.1); Alkaline Phosphatase 66 U/L (38-126); Anion Gap 7 mmol/L (4-12); Aspartate Amino Transferase 34 U/L (14-36); Bilirubin,Total 0.6 mg/dL (0.2-1.3); Blood Urea Nitrogen 12 mg/dL (7-17); Calcium 9.2 mg/dL (8.4-10.2); Carbon Dioxide 26 mmol/L (22-30); Chloride 104 mmol/L (98-107); Cholesterol 206 mg/dL (0-200); Creatine Kinase 164 U/L (30-135); Estimated Glomerular Filt Rate > 60; Glucose 99 mg/dL (65-110); HDL Direct 56 mg/dL; LDL Cholesterol Calculated 130 mg/dL (<130); Osmolality Calculated 283 mOsm/kg (285-295); Potassium 3.3 mmol/L (3.4-5.0); Sodium 137 mmol/L (137-145); Total Protein 7.1 g/dL (6.3-8.2); Triglycerides 102 mg/dL (<150)
== END 2024-07-11 08:01 | disposition home or self-care (01) ==
PROVIDERS: PCP Internal Medicine; Visit Provider Internal Medicine
DX: E78.2 Mixed hyperlipidemia (principal); E03.4 Atrophy of thyroid (acquired); R73.01 Impaired fasting glucose; M81.0 Age-related osteoporosis without current pathological fracture; N39.0 Urinary tract infection, site not specified
CPT/HCPCS: 36415; 80053; 80061; 81003; 82550; 83036; 84439; 84443; 84481; 85025

== ENCOUNTER 2024-10-10 07:42 | Outpatient (CLI) | payer OTHER, SELFPAY ==
--- OUTSIDE RECORDS SUMMARY | 2024-10-10 07:47 | XMS_ITS | Clinical Summary ---
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 Overview (02/23/2018): Impression - 20May2016 Nick [...] on file Legal Sex Female 10:57 PM PROCESS CONSULTANT Gender Identity Not on file Sexual Orientation Not on file Last Filed Vital Signs Vital Sign Reading Time Taken Comments Blood Pressure 118/70 04/16/2021 10:37 AM PROCESS CONSULTANT Pulse 77 04/16/2021 10:37 AM PROCESS CONSULTANT Temperature 36.2 C (97.1 F) 10/18/2019 10:58 AM CDT Respiratory Rate - - Oxygen Saturation 98% 04/16/2021 10:37 AM PROCESS CONSULTANT Inhaled Oxygen Concentration - - Weight 51.8 kg (114 lb 3.2 oz) 04/16/2021 10:37 AM PROCESS CONSULTANT Height 154.9 cm (5' 1) 04/16/2021 10:37 AM PROCESS CONSULTANT Body Mass Index 21.58 04/16/2021 10:37 AM PROCESS CONSULTANT Plan of Treatment Health Maintenance Due Date [...] Priority Date/Time Associated Diagnosis Comments COLONOSCOPY Routine PROCESS CONSULTANT from Last 3 Months or Most Recently Relevant to Health Maintenance Results * Colonoscopy ( PROCESS CONSULTANT) Narrative [facility] TO EPIC CONVERSION - PROCESS CONSULTANT Documented hx of procedure Procedure Note Md Generic ConversionMD - 01/07/2018 Documented hx of procedure us Generic Conversion Md CHACKO GI PROCEDURE ORDERABLES Final Result [facility] TO EPIC CONVERSION from Last 3 Months or Most Recently Relevant to Health Maintenance Insurance [employer] Care Teams Deckhand Relationship Specialty Start Date End Date Levon Guadalupe MD [address] [place] [address] PCP - General INTERNAL MEDICINE 12/20/17
[2024-10-10 08:40] LABS: Alanine Aminotransferase 38 U/L (6-35); Albumin Level 4.7 g/dL (3.5-5.1); Alkaline Phosphatase 64 U/L (38-126); Anion Gap 9 mmol/L (4-12); Aspartate Amino Transferase 34 U/L (14-36); Bilirubin,Total 0.6 mg/dL (0.2-1.3); Blood Urea Nitrogen 13 mg/dL (7-17); Calcium 9.7 mg/dL (8.4-10.2); Carbon Dioxide 28 mmol/L (22-30); Chloride 102 mmol/L (98-107); Estimated Glomerular Filt Rate > 60; Glucose 104 mg/dL (65-110); Osmolality Calculated 288 mOsm/kg (285-295); Potassium 3.5 mmol/L (3.4-5.0); Sodium 139 mmol/L (137-145); Total Protein 7.4 g/dL (6.3-8.2)
== END 2024-10-10 07:43 | disposition home or self-care (01) ==
LOC: CHSLAB 07:45
PROVIDERS: PCP Internal Medicine
DX: G40.909 Epilepsy, unspecified, not intractable, without status epilepticus (principal)
CPT/HCPCS: 36415; 80053

== ENCOUNTER 2025-01-09 08:02 | Outpatient (CLI) | payer OTHER, SELFPAY ==
[2025-01-09 08:19] LABS: Hematocrit 46.4 % (35.0-49.0); Hemoglobin 15.8 g/dL (12.0-15.0); Immature Granulocyte Percent A 0.3 % (0.0-0.0); Lymphocytes Absolute Auto 2.48 K/mm3 (1.10-4.50); Mean Corpuscular HGB Conc 34.1 g/dL (32-36); Mean Corpuscular Hemoglobin 29.4 pg (27.0-31.0); Mean Corpuscular Volume 86.2 fL (78.0-102.0); Nucleated Red Blood Cells Absolute Auto 0.00 K/mm3 (0.00-0.00); Nucleated Red Blood Cells Perc 0.0 % (0-0.0); Platelet Count Result 373 K/mm3 (150-420); Red Blood Count 5.38 M/mm3 (4.20-5.40); White Blood Count 7.4 K/mm3 (4.8-10.8)
[2025-01-09 08:52] LABS: Add Urine Microscopic? NO; Appearance Urine Clear (Clear); Glucose Urine UA Negative (Negative); Leukocyte Esterase Ur Negative (Negative); Nitrate Urine Negative (Negative); Specific Grav Ur 1.010 (1.010-1.020)
[2025-01-09 09:19] LABS: Alanine Aminotransferase 40 U/L (6-35); Albumin Level 4.7 g/dL (3.5-5.1); Alkaline Phosphatase 65 U/L (38-126); Anion Gap 8 mmol/L (4-12); Aspartate Amino Transferase 34 U/L (14-36); Bilirubin,Total 1.5 mg/dL (0.2-1.3); Blood Urea Nitrogen 12 mg/dL (7-17); Calcium 9.6 mg/dL (8.4-10.2); Carbon Dioxide 29 mmol/L (22-30); Chloride 104 mmol/L (98-107); Cholesterol 191 mg/dL (0-200); Creatine Kinase 99 U/L (30-135); Estimated Glomerular Filt Rate > 60; Glucose 103 mg/dL (65-110); HDL Direct 60 mg/dL; Osmolality Calculated 291 mOsm/kg (285-295); Potassium 3.3 mmol/L (3.4-5.0); Sodium 141 mmol/L (137-145); Total Protein 7.5 g/dL (6.3-8.2); Triglycerides 118 mg/dL (<150)
[2025-01-09 09:36] LABS: Free T3 3.80 pg/mL (2.18-3.98); Free T4 Free Thyroxine 1.72 ng/dL (0.78-2.19)
[2025-01-09 09:49] LABS: Thyroid Stimulating Hormone 1.070 uIU/mL (0.465-4.680)
--- OUTSIDE RECORDS SUMMARY | 2025-01-09 16:59 | XMS_ITS | Data Portability ---
Author Organization [facility], [address] [place] [address] Neurology (MD) Address [address] [place] [address] Care Team Providers Care Settlement Processor Name Role Phone SHILPI BECKER Primary Care Provider [phone] Assessment Encounter Date Assessment Date Assessment LastModified by Organization Details LastModified Time 08/28/2024 08/28/2024 ASSESSMENT AND PLAN: Teri Andujar is a 58-year-old female who returns for follow-up for seizure dysfunction. She has had refractory seizure events at least 3 reported in May. I think she needs a medication change. We will maintain topiramate for now since she has had some efficacy in the past at the lower dose of 100 mg twice daily to avoid the ocular adverse effects. In addition to this, I will add Trileptal 150 mg twice daily. We will obtain a baseline CBC and CMP and repeat in 1 month to monitor sodium and liver function and blood panel. If this remains stable, we will clinically monitor if she exhibits control. She is to maintain seizure precautions for 6 months including no driving, no operating heavy machinery, no climbing heights greater than 3 feet and no tub bathing. Regarding swimming and hot tubbing, she will need supervision. I will see her back in 3 to 4 months. We will attempt to do this in [place]. If this is not possible, we will do a telehealth visit at that point. If she is doing well in 3 to 4 months without recurrence, we may consider weaning away topiramate at that point. If she has any refractory event with topiramate, we will consider increasing Trileptal as long as lab work is stable to 300 mg twice daily. I also explained that the staff member who did not pass the task forward is no longer working with the clinic. I personally spent a total of 30 minutes on the patient on this date of service including both [id number] and [id number]-[id number] e time excluding any separately reportable services. puneet dietrich Not available 08/28/2024 13:30:00 12/23/2024 12/23/2024 1. Complex partial seizure disorder - Increase topiramate from 100 mg twice daily to 150 mg twice daily, as previously effective and visual issues now believed related to eyeglass prescription rather than medication side effect. - Do not restart trileptal given prior visual concerns and current plan to optimize topiramate. - Patient currently six months seizure-free; remove seizure precautions. Driving, operating machinery, climbing heights >3 ft, and tub bathing permitted per [place] guidelines as risk now comparable to general population. - Follow-up in 1 year if stable, sooner if any recurrence or new concerns. Additional notes: Patient comfortable with medication adjustment back to prior effective dosing. Total time spent: 10 minutes (Tracked by Alcides ) nancy Not available 12/23/2024 13:20:23 Plan of Treatment Reminders Order Date Submit Date Provider Last Modified By Organization Details Last Modified Time Details Appointments Establish ed Patient 15.EST 2025 01:30P M Dr. India Delaney Not available Not available Not available Lab CBC w/ auto diff 2024 025 [facility], [address] [place] [address], [id number], 08/28/2024 14:00:10 CMP, serum or plasma 2024 025 [facility], [address] [place] [address], [id number], 08/28/2024 14:48:22 Referral None recorded. Procedures None recorded. Surgeries None recorded. Imaging None recorded. Medication Orders topiramat e 100 mg tablet 2024 025 [facility] [place], [id number], 12/23/2024 16:18:37 topiramat e 50 mg tablet 2024 025 [facility], [address] [place], [address], 12/23/2024 16:18:37 Trileptal 150 mg tablet 2024 025 [facility] [place], [address], 09/05/2024 09:45:11 Patient TargetsNo targets recorded. Patient InstructionsNo instructions recorded. Reason for Referral None Reported. Results Created Date Observation Date Name Description Value Unit Range Abnormal Flag Note LastModifiedBy Organization Detail LastModifiedTime 08/29/1908/28/2024 CBC w/ auto diff CBC with differential Not Available [facility] [address] [place] [address], [id number], 08/28/2024 14:00:10 08/29/19 25 08/28/2024 CBC w/ auto diff WBC 8.2 K/uL 3.8-11 .2 Not Available [facility] [address] [place] [address], [id number], 08/28/2024 14:00:10 08/29/19 25 08/28/2024 CBC w/ auto diff RBC 5.50 M/uL 3.92-5 .10 high Not Available [facility] [address] [place] [address], [id number], 08/28/2024 14:00:10 08/29/19 25 08/28/2024 CBC w/ auto diff HGB 16.1 g/dL 11.8-1 5.3 high Not Available [facility] [address] [place] [address], [id number], 08/28/2024 14:00:10 08/29/19 25 08/28/2024 CBC w/ auto diff HCT 48.1 % 36.5-4 4.8 high Not Available [facility] [address] [place] [address], [id number], 08/28/2024 14:00:10 08/29/19 25 08/28/2024 CBC w/ auto diff MCV 87.5 fL 80.0-9 9.0 Not Available [facility] [address] [place] [address], [id number], 08/28/2024 14:00:10 08/29/19 25 08/28/2024 CBC w/ auto diff MCH 29.3 pg 25.5-3 3.6 Not Available [facility] [address] [place] [address], [id number], 08/28/2024 14:00:10 08/29/19 25 08/28/2024 CBC w/ auto diff MCHC 33.5 g/dL 32.0-3 6.0 Not Available [facility] [address] [place] [address], [id number], 08/28/2024 14:00:10 08/29/19 25 08/28/2024 CBC w/ auto diff RDW-SD 38.0 fL 35.1 - 46.3 Not Available [facility] [address] [place] [address], [id number], 08/28/2024 14:00:10 08/29/19 25 08/28/2024 CBC w/ auto diff plt 379 K/uL 130-40 0 Not Available [facility] [address] [place] [address], [id number], 08/28/2024 14:00:10 08/29/19 25 08/28/2024 CBC w/ auto diff MPV 9.0 fL 9.3-12 .8 low Not Available [facility] [address] [place] [address], [id number], 08/28/2024 14:00:10 08/29/19 25 08/28/2024 CBC w/ auto diff suhail% 58.2 % not estab Not Available [facility] [address] [place] [address], [id number], 08/28/2024 14:00:10 08/29/1908/28/2024 CBC w/ auto diff lym% 30.2 % not estab Not Available [facility] [address] [place] [address], [id number], 08/28/2024 14:00:10 08/29/1908/28/2024 CBC w/ auto diff mono% 6.2 % not estab Not Available [facility] [address] [place] [address], [address], 08/28/2024 14:00:10 08/29/1908/28/2024 CBC w/ auto diff eos% 4.0 % not estab Not Available [facility] [address] [place] [address], [id number], 08/28/2024 14:00:10 08/29/1908/28/2024 CBC w/ auto diff baso% 1.2 % not estab Not Available [facility] [address] [place] [address], [id number], 08/28/2024 14:00:10 08/29/1908/28/2024 CBC w/ auto diff abs suhail 4.7 K/uL 1.8-7. 5 Not Available [facility] [address] [place] [address], 34[address], 08/28/2024 14:00:10 08/29/1908/28/2024 CBC w/ auto diff abs lym 2.5 K/uL 1.1-3. 3 Not Available [facility] [address] [place] [address], [id number], 08/28/2024 14:00:10 08/29/1908/28/2024 CBC w/ auto diff abs mono 0.5 K/uL 0.1-1. 0 Not Available [facility] [address] [place] [address], [address], 08/28/2024 14:00:10 08/29/1908/28/2024 CBC w/ auto diff abs eos 0.3 K/uL 0.0-0. 7 Not Available [facility] [address] [place] [address], 39[address], 08/28/2024 14:00:10 08/29/1908/28/2024 CBC w/ auto diff abs baso 0.1 K/uL 0.0-0. 2 Not Available [facility] [address] [place] [address], [address], 08/28/2024 14:00:10 08/29/1908/28/2024 CBC w/ auto diff imm. gran % 0.2 % 0-5 Not Available [facility] [address] [place] [address], [address], 08/28/2024 14:00:10 08/29/19 25 08/28/2024 CBC w/ auto diff NRBC % 0.0 % 0.0-0. 2 Not Available [facility] [address] [place] [address], [id number], 08/28/2024 14:00:10 08/29/1908/28/2024 CMP, serum or plasm a comp. met. panel Not Available [facility] [address] [place] [address], 146[address], 08/28/2024 14:48:22 08/29/1908/28/2024 CMP, serum or plasm a sodium 142 mmol/ L 136-14 6 Not Available [facility] [address] [place] [address], 045[address], 08/28/2024 14:48:22 08/29/1908/28/2024 CMP, serum or plasm a potassium 4.2 mmol/ L 3.5-5. 1 Not Available [facility] [address] [place] [address], 37[address], 08/28/2024 14:48:22 08/29/1908/28/2024 CMP, serum or plasm a chloride 101 mmol/ L 98-110 Not Available [facility] [address] [place] [address], 039[address], 08/28/2024 14:48:22 08/29/1908/28/2024 CMP, serum or plasm a CO2 31 mEq/L 20-32 Not Available [facility] [address] [place] [address], 038[address], 08/28/2024 14:48:22 08/29/1908/28/2024 CMP, serum or plasm a anion gap 14 mmol/ L 10-22 Not Available [facility] [address] [place] [address], [address], 08/28/2024 14:48:22 08/29/1908/28/2024 CMP, serum or plasm a glucose 93 mg/dL 70-100 Not Available [facility] [address] [place] [address], 998[address], 08/28/2024 14:48:22 08/29/1908/28/2024 CMP, serum or plasm a calcium 10.4 mg/dL 8.4-10 .4 Not Available [facility] [address] [place] [address], [id number], 08/28/2024 14:48:22 08/29/1908/28/2024 CMP, serum or plasm a total protein 7.5 g/dL 6.4-8. 3 Not Available [facility] [address] [place] [address], 487[address], 08/28/2024 14:48:22 08/29/1908/28/2024 CMP, serum or plasm a albumin 5.0 g/dL 3.5-5. 3 Not Available [facility] [address] [place] [address], 17948, 08/28/2024 14:48:22 08/29/19 25 08/28/2024 CMP, serum or plasm a ALP 77 U/L 44 - 127 Not Available [facility] [address] [place] [address], [id number], 08/28/2024 14:48:22 08/29/19 25 08/28/2024 CMP, serum or plasm a AST (SGOT) 24 U/L 10-40 Not Available [facility] [address] [place] [address], [address], 08/28/2024 14:48:22 08/29/19 25 08/28/2024 CMP, serum or plasm a total bilirubin 0.3 mg/dL 0.2-1. 2 Not Available [facility] [address] [place] [address], [address]67[address], 08/28/2024 14:48:22 08/29/19 25 08/28/2024 CMP, serum or plasm a ALT (SGPT) 36 U/L 8-35 high Not Available [facility] [address] [place] [address], 6[address], 08/28/2024 14:48:22 08/29/19 25 08/28/2024 CMP, serum or plasm a BUN 13 mg/dL 7-21 Not Available [facility] [address] [place] [address], [address]07[address], 08/28/2024 14:48:22 08/29/19 25 08/28/2024 CMP, serum or plasm a creatinine 0.8 mg/dL 0.7-1. 3 Not Available [facility] [address] [place] [address], [address], 08/28/2024 14:48:22 08/29/19 25 08/28/2024 CMP, serum or plasm a CKD-epi GFR 84 eGFR was calcu lated using the 2020 CKD-E PI equat ion. (Flumer jarod Kidne y Disea se has an eGFR less than 60 mL/mi n/1.7 3mm for a perio d of three month s or more. ) This calcu latio n has not been valid ated for patie nt ages <18 or >90 years old. Not Available [facility] [address] [place] [address], [id number], 08/28/2024 14:48:22 Result Notes None recorded. Problems Name Problem SNOMED Code Status Onset Date Resolution Date Notes Provider Name and Address Organization Details Recorded Time Epileptic seizure 303404991 Active 024 [facility] 5 14:34:21 Seizure disorder 895960556 Active 025 India Delaney MD [facility] [address], [address] [place] [address] 5 10:45:27 Problem Notes None recorded. Procedures Surgical History Date Name Laterality Status Provider Name and Address Organization Details Recorded Time Colonoscopy with biopsy completed Not Available Health Note 12/16/2024 14:16:14 Total hysterectomy completed Not Available Health Note 12/16/2024 14:16:14 Imaging Results None recorded. Procedure Notes None recorded. Medical Equipment None Reported. Allergies Allergen ID Allergen Name Allergen Category Reaction Reaction Severity Criticality Documentation Date Start Date Code Code System Note Provider Name and Address Organization Details Recorded Time 2373720 Iodinated contrast media (substanc e) medicatio n Not available Not available Not available 04/05/20232020 92553 2004 SNOMED Not Available [facility] 4 04:24:12 2751054 Benadryl medicatio n Not available Not available Not available 04/05/20232020 98246 7 RxNorm Not Available [facility] 4 04:24:12 3836562 naproxen medicatio n abdominal pain Not available Not available 04/05/20232012 7258 RxNorm React ion: Abdom inal pain; Nause a; Vomit ing; Not Available [facility] 4 04:24:13 010105 Augmentin medicatio n nausea Not available Not available 04/03/20231 93732 2 RxNorm React ion: Nause a; Vomit ing; Not Available [facility] 4 21:27:22 777632 Biaxin medicatio n abdominal pain Not available Not available 04/03/20232012 63942 9 RxNorm React ion: Nause a; Vomit ing; Abdom inal pain; Not Available [facility] 4 21:27:23 Medications Name Sig Start Date Stop Date Status Note LastModified by Organization Details LastModified Time atorvasta tin 40 mg tablet TAKE 1 TABLET BY MOUTH ONCE DAILY active Not Available Not Available No t Available azithromy cali 250 mg tablet TAKE 2 TABLETS BY MOUTH ON DAY 1, AND THEN TAKE 1 TABLET BY MOUTH ONCE A DAY ON DAY 2 THROUGH DAY 5 08/28 completed Not Available Not Available Not Available benzonata te 200 mg capsule TAKE 1 CAPSULE BY MOUTH THREE TIMES DAILY NEEDED FOR COUGH active Not Available Not Available No t Available alendrona te 70 mg tablet TAKE 1 TABLET BY MOUTH ONCE A WEEK AT LEAST 30 MINUTES BEFORE FIRST FOOD, BEVERAGE OR MEDICATI ON OF THE DAY. active Not Available Not Available No t Available Space Chamber INHALE TWO PUFFS BY MOUTH EVERY 4 HOURS NEEDED active Not Available Not Available No t Available potassium chloride ER 20 mEq tablet,ex tended release(p art/cryst ) TAKE 3 TABLETS BY MOUTH ONCE DAILY active Not Available Not Available No t Available levothyro xine 50 mcg tablet TAKE 1 TABLET BY MOUTH ONCE DAILY active Not Available Not Available No t Available Trileptal 150 mg tablet Take 1 tablet twice a day by oral route. 09/05 completed started having occular changes Not Available Not Available Not Available hydrochlo rothiazid e 25 mg tablet TAKE 2 TABLETS BY MOUTH ONCE DAILY active Not Available Not Available No t Available methylpre dnisolone 4 mg tablets in a dose pack TAKE DIRECTED PER PACKAGE DIRECTIO NS active Not Available Not Available No t Available albuterol sulfate HFA 90 mcg/actua tion aerosol inhaler INHALE 2 PUFFS BY MOUTH EVERY 4 HOURS NEEDED WITH SPACER active Not Available Not Available No t Available topiramat e 100 mg tablet TAKE 1 TABLET BY MOUTH TWICE DAILY in addition to 50 mg tablet FOR SEIZURES 2024 active Not Available Not Available Not Avai lable topiramat e 50 mg tablet TAKE 1 TABLET BY MOUTH TWICE DAILY IN ADDITION TO 100MG TABLET. active Not Available Not Available No t Available potassium chloride ER 20 mEq tablet,ex tended release TAKE 3 TABLETS BY MOUTH ONCE DAILY active Not Available Not Available No t Available Vitals Date Recorded Body weight Heart rate Oxygen saturation Oxygen saturation in Arterial blood by Pulse oximetry Systolic And Diastolic Provider Name and Address Organization Details Last Updated DateTime 5 50244.7 4 g 67 /min 99 % 99 % 124/80 mm[Hg] [facility] 5 10:26:34 Date Recorded Body weight Heart rate Oxygen saturation Oxygen saturation in Arterial blood by Pulse oximetry Systolic And Diastolic Provider Name and Address Organization Details Last Updated DateTime 5 07638.9 g 70 /min 99 % 99 % 110/64 mm[Hg] [facility] 5 12:23:36 Social History Question Answer Notes LastModified by [employer] Details LastModified Time Tobacco Smoking Status Former Smoker Not Available Health Note 12/16/2024 14:16:15 Do You Have An Advance Directive? No [email or web address] Information n ot available 12/16/2024 What Is Your Level Of Caffeine Consumption? None [email or web address] Information not available 12/16/2024 How Many Times Per Week Do You Exercise? 3-4 Times Per Week [email or web address] Information not available 12/16/2024 When Did You Quit Smoking? 16+yearssin nicole barclayjem [email or web address] Information not available 12/16/2024 What Was The Date Of Your Most Recent Tobacco Screening? 12/23/2024 [email or web address] Information not available 12/16/2024 What Is Your Relationship Status? Single [email or web address] Information not available 12/16/2024 Sex: Unknown Functional Status Question Answer Note LastModified by [employer] Details LastModified Time Do you use any illicit or recreational drugs? No [email or web address] Information not available 12/16/2024 Do you or have you ever used any other forms of tobacco or nicotine? No [email or web address] Information not available 12/16/2024 What is your level of alcohol consumption? None [email or web address] Information not available 12/16/2024 Are you currently employed? 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 Moderate [email or web address] Information not available 12/16/2024 Mental Status None recorded. Family History Relationship Description Onset Age of this Age Resolved Age Notes LastModified by Organization Details LastModified Time Father Alzheimer's disease [email or web address] Not available 2024 14:16:14 Father Hypertensive disorder [email or web address] Not available 2024 14:16:14 Father Hypercholest erolemia [email or web address] Not available 2024 14:16:14 Sister Family history of malignant neoplasm [email or web address] Not available 2024 14:16:14 Maternal Grandmother Heart disease [email or web address] Not available 2024 14:16:14 Maternal Grandmother Hypertensive disorder [email or web address] Not available 2024 14:16:14 Maternal Grandmother Disorder of thyroid gland [email or web address] Not available 2024 14:16:14 Mother Hypertensive disorder [email or web address] Not available 2024 14:16:14 Mother Hypercholest erolemia [email or web address] Not available 2024 14:16:14 Mother Disorder of thyroid gland [email or web address] Not available 2024 14:16:14 Brother Hypertensive disorder [email or web address] Not available 2024 14:16:14 Brother Hypercholest erolemia [email or web address] Not available 2024 14:16:14 Maternal Grandfather Hypertensive disorder [email or web address] Not available 2024 14:16:14 Medical History Condition Response Anxiety Disorder N Diabetes N Attention-deficit Hyperactivity Disorder N Bleeding Disorder N High Blood Pressure N Arthritis N Hyperlipidemia N Cancer N Stroke N Thyroid Problems Y COPD N Asthma Y Depression N Anemia N Seizures Y Heart Disease N Fibromyalgia N Osteoporosis N Kidney Disease N Gynecological HistoryNo gynecological history recorded. Obstetrics History GPAL:G 0 P 0 0 0 0 Past Encounters Encounter ID Performer Location Encounter Start Date Encounter Closed Date Diagnosis/Indication Diagnosis SNOMED-CT Code Diagnosis ICD10 Code Diagnosis IMO Codes Diagnosis Note [id number] India MD Jose Guadalupe Delaney [facility] Neurology ([place]) [address] [place] [address] 08/28/2024 10:10:26 08/28/2024 10:53:31 Seizure disorder 381288523 G40.909 58871 [id number] India Delaney MD [facility] ([place]) [address] [place] [address] 12/23/2024 12:14:36 12/23/2024 13:37:13 Seizure disorder 737094502 G40.909 47750 Health Concerns Section Related Observation LastModified by Organization Detai ls LastModified Time None Recorded Concern Status LastModified by Organization Details LastModified Time None Recorded Advance Directives Directive N: Payers Insurance Date Sequence Insurance Name Policy Number Policy Ramirez Covered Member ID Ramirez Member ID Guarantor Name 12/19/2024 1 [employer] 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 We last saw her in April 2023. At that point she was doing well without recurrence of seizure but was having visual issues on a higher dose of topiramate. She was decreased back to 100 mg twice daily with reported control until May in which she reported 3 events. This was never passed on to physician for review. She has had recurrent events now and is maintaining seizure precautions. She does not report any visual issues in correlation with the topiramate but has no control. Historically, she has failed Vimpat, Depakote and Keppra. She had an abnormal EEG in [place] she believes at [facility] approximately 20 years ago that showed findings consistent with a partial complex seizure disorder. Historically, she had some events with secondary generalization. She does get an odd malaise sensation with dizziness and metallic taste and smell prior to onset of the event. When the event occurs, it is brief in nature. Many times these are happening at nighttime. When she had an event in May it was reported that she was having tax related issues and had the events around that time. Again, this was never sent to physician for review. At this point, she is not driving. She has a local preacher s who assists her getting to her appointment today. She lives in the [facility]. She has never attempted focal agents like oxcarbazepine or carbamazepine. She has had no sodium issues. She has not had recent lab work. India Delaney MD [address] [place] [address], [phone], [facility] 08/28/2024 17:37:24 12/23/2024 text/html Teri Andujar is a 59-year-old female returning for follow-up of complex partial seizure disorder. She had been on topiramate 150 mg twice daily with good seizure control. In spring of last year, she developed ocular/visual issues and topiramate was reduced at the last appointment, after which she experienced recurrent seizure events in May. She reports stress historically as a trigger for her events. Trileptal (oxcarbazepine) 150 mg twice daily was then started, but this was stopped in September due to similar ocular changes. Since then, she has had her eyes examined and her glasses prescription was changed; she now reports 20/20 vision and believes the prior visual symptoms were due to her prescription rather than medication side effects. She is currently maintained on topiramate 100 mg twice daily and reports no recurrent seizures in the interim (now approximately six months event-free). India Delaney MD [address] [place] [address], [phone], [facility] 12/23/2024 13:20:58 OBGyn Episode No OBEpisode recorded.
--- OUTSIDE RECORDS SUMMARY | 2025-01-09 16:59 | XMS_ITS | Clinical Summary ---
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 Gender Identity Not on file Sexual Orientation Not on file Last Filed Vital Signs Vital Sign Reading Time Taken Comments Blood Pressure 118/70 04/16/2021 10:37 AM MOTOR MECHANIC Pulse 77 04/16/2021 10:37 AM MOTOR MECHANIC Temperature 36.2 C (97.1 F) 10/18/2019 10:58 AM CDT Respiratory Rate - - Oxygen Saturation 98% 04/16/2021 10:37 AM MOTOR MECHANIC Inhaled Oxygen Concentration - - Weight 51.8 kg (114 lb 3.2 oz) 04/16/2021 10:37 AM MOTOR MECHANIC Height 154.9 cm (5' 1) 04/16/2021 10:37 AM MOTOR MECHANIC Body Mass Index 21.58 04/16/2021 10:37 AM MOTOR MECHANIC Plan of Treatment Health Maintenance Due Date [...] 50+ Ye ars (2 of 2 - PCV20 or PCV21) 11/11/2016 11/12/2015 COVID-19 Vaccine (1 - 2024-2 6 season) 2024 Influenza Adult (#1) 2024 RSV Immunization or 60+ Years (1 - 1-dose 75+ series) 11/03/2038 Hepatitis A Vaccines Aged Out No long er eligible based on patient's age to complete [...] Priority Date/Time Associated Diagnosis Comments COLONOSCOPY Routine MOTOR MECHANIC from Last 3 Months or Most Recently Relevant to Health Maintenance Results * Colonoscopy ( MOTOR MECHANIC) Narrative [facility] TO EPIC CONVERSION - MOTOR MECHANIC Documented hx of procedure Procedure Note , Generic Conversion, - 01/07/2018 Documented hx of procedure us Generic Conversion Md [facility] PROCEDURE ORDERABLES Final Result [facility] TO EPIC CONVERSION from Last 3 Months or Most Recently Relevant to Health Maintenance Insurance [employer] MEDICAID Care Teams [employer] Supervisor Relationship Specialty Start Date End Date Levon Guadalupe MD [address] [place] [address] PCP - General INTERNAL MEDICINE 12/20/17
== END 2025-01-09 08:03 | disposition home or self-care (01) ==
LOC: CHSLAB 08:05
PROVIDERS: PCP Internal Medicine; Visit Provider Internal Medicine
DX: M81.0 Age-related osteoporosis without current pathological fracture (principal); E78.2 Mixed hyperlipidemia; E03.4 Atrophy of thyroid (acquired); I10 Essential (primary) hypertension
CPT/HCPCS: 36415; 80053; 80061; 81003; 82306; 82550; 84439; 84443; 84481; 85025

== ENCOUNTER 2025-03-03 13:17 | Outpatient (CLI) | payer OTHER, SELFPAY ==
--- NOTE | ~2025-03-03 | MM_ITS ---
EXAMINATION: MM screening caryn BI w chandler HISTORY: Screening. TECHNIQUE: Craniocaudal and mediolateral oblique 3-D tomosynthesis images were obtained and synthetic 2-D images were generated. CAD analysis was submitted and interpreted. COMPARISON: 2023, 2022, and 2021 BREAST PARENCHYMAL COMPOSITION: The breasts are heterogeneously dense, which may obscure small masses. FINDINGS: No suspicious masses are seen. There are no suspicious calcifications. No unexplained architectural distortion is seen. There are no skin or nipple abnormalities identified. There is no adenopathy seen on the images submitted. IMPRESSION: No mammographic evidence to suggest malignancy is seen. The patient may return to screening mammography as per ACR guidelines. BI-RADS 1 - Negative. Reviewed, dictated and finalized at location C. ER [employer] INSPECT[employer] TRIMMER
--- OUTSIDE RECORDS SUMMARY | 2025-03-03 13:33 | XMS_ITS | Clinical Summary ---
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 Gender Identity Not on file Sexual Orientation Not on file Last Filed Vital Signs Vital Sign Reading Time Taken Comments Blood Pressure 118/70 04/16/2021 10:37 AM CERAMIC DESIGNER Pulse 77 04/16/2021 10:37 AM CERAMIC DESIGNER Temperature 36.2 C (97.1 F) 10/18/2019 10:58 AM CDT Respiratory Rate - - Oxygen Saturation 98% 04/16/2021 10:37 AM CERAMIC DESIGNER Inhaled Oxygen Concentration - - Weight 51.8 kg (114 lb 3.2 oz) 04/16/2021 10:37 AM CERAMIC DESIGNER Height 154.9 cm (5' 1) 04/16/2021 10:37 AM CERAMIC DESIGNER Body Mass Index 21.58 04/16/2021 10:37 AM CERAMIC DESIGNER Plan of Treatment Health Maintenance Due Date [...] Priority Date/Time Associated Diagnosis Comments COLONOSCOPY Routine CERAMIC DESIGNER from Last 3 Months or Most Recently Relevant to Health Maintenance Results * Colonoscopy ( CERAMIC DESIGNER) Narrative [facility] TO EPIC CONVERSION - CERAMIC DESIGNER Documented hx of procedure Procedure Note , Generic Conversion, - 01/07/2018 Documented hx of procedure us Generic Conversion Md [facility] GI PROCEDURE ORDERABLES Final Result [facility] TO EPIC CONVERSION from Last 3 Months or Most Recently Relevant to Health Maintenance Insurance [employer] MEDICAID Care Teams [employer] Relationship Specialty Start Date End Date Levon Guadalupe MD [address] [place] [address] PCP - General INTERNAL MEDICINE 12/20/17
== END 2025-03-03 13:18 | disposition home or self-care (01) ==
LOC: CHSIMG 13:20
PROVIDERS: PCP Internal Medicine; Visit Provider Internal Medicine
DX: Z12.31 Encounter for screening mammogram for malignant neoplasm of breast (principal)
CPT/HCPCS: 77063; 77067